=== PATIENT | female | born 1950 | race Caucasian/White ===

== ENCOUNTER → 2018-11-21 | Outpatient (CLI) | payer MEDICARE ==
--- NOTE | 2018-11-21 22:39 | MR ---
EXAMINATION TYPE: MR tspine/lspine wo con DATE OF EXAM: 11/21/2018 COMPARISON: NONE HISTORY: Pain in thoracic spine, DDD, spasm, and low back pain per order. Back pain for 5 weeks per p atient. TECHNIQUE: Multiplanar, multisequence imaging of the thoracic and lumbar spine are performed without IV contrast. FINDINGS: T-SPINE: TECHNIQUE: Multiplanar, multisequence imaging of thoracic spine is performed without contrast FINDINGS: Sagittal T2 counting sequence shows posterior disc herniations efface the anterior thecal s ac at C5-C6 and C6-C7 levels. Spinal cord shows normal course, caliber, and signal as it courses the thoracic spine. Vertebral body heights and alignment are satisfactory. To space heights are fairly well maintained. There are posterior disc herniations efface the anterior thecal sac at T1-T2, T2-C3, T7-T8, T8-T9, T9-T10, and T10-T11 levels on sagittal images. Bone marrow signal intensity shows diff use hemangioma transformation of T9 vertebra and overall heterogeneity. Multilevel mild anterior and lateral spurring is present. Review of the axial images shows no additional significant disc herniation or significant neural fora dawood narrowing at any thoracic level. No suspicious incidental finding is seen in the visualized th orax or upper abdomen. IMPRESSION: Multilevel small posterior disc herniation that are most prominent in the lower thoracic spine is detailed above. L-SPINE: Sagittal images of the lumbar spine show vertebral body heights and alignment to appear satisfactory. Multilevel disc desiccation with mild disc space narrowing is present. Multilevel small posterior di sc herniations are seen on sagittal images. There is mild/moderate multilevel anterior spurring. The conus medullaris is normal in position and signal ending mid L1 level. 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 The bone marrow signal intensity is overall heterogeneous. Axial images at T12-L1 level are within normal limits. Axial images at L1-L2 levels show with mild broad disc bulge mildly effaces the anterior thecal sac a nd axial image 25. Axial images at the L2-L3 level show mild to moderate broad disc bulge all effacing the anterior thec al sac causing [id number] left greater than right bilateral anterior inferior neural foraminal narrowing. Axial images at the L3-L4 level mild/moderate broad-based disc bulge mildly effacing anterior thecal sac with mild facet degenerative changes bilaterally. There is mild bilateral anterior inferior neura l foraminal narrowing noted. Axial images at the L4-L5 level show mild/moderate facet degenerative changes bilaterally mildly effa cing posterior lateral thecal sac with mild broad disc bulge mildly effacing the anterior thecal sac. Bilateral neural foramina are patent. Axial images at the L5-S1 level show mild/moderate facet degenerative changes bilaterally. There is a rtifact from anterior fusion hardware. There is broad disc bulge with left precentral disc protrusion component mildly efface the anterior thecal sac. Bilateral neural foramina are patent. IMPRESSION: Multilevel degenerative changes in the lumbar spine as detailed above.
== END | disposition home or self-care (01) ==
LOC: RADMRIMAIN 17:43
PROVIDERS: ATTEND Family Medicine
DX: M48.061 Spinal stenosis, lumbar region without neurogenic claudication (principal); M51.26 Other intervertebral disc displacement, lumbar region; M51.24 Other intervertebral disc displacement, thoracic region; M47.816 Spondylosis without myelopathy or radiculopathy, lumbar region
CPT/HCPCS: 72146; 72148

== ENCOUNTER → 2018-12-18 | Outpatient (CLI) | payer MEDICARE ==
--- NOTE | 2018-12-18 11:32 | CT ---
EXAMINATION TYPE: CT abdomen w con DATE OF EXAM: 12/18/2018 COMPARISON: None HISTORY: Generalized abdominal pain CT DLP: 1068 mGycm Automated exposure control for dose reduction was used. TECHNIQUE: Helical acquisition of images was performed from the lung bases through the top of iliac crest to include entire abdomen. CONTRAST: Performed without Oral Contrast and with IV Contrast, patient injected with 100 ml mL of Isovue 300. FINDINGS: LUNG BASES: No significant abnormality is appreciated. LIVER/GB: No significant abnormality is appreciated. PANCREAS: No significant abnormality is seen. SPLEEN: No significant abnormality is seen. ADRENALS: No significant abnormality is seen. KIDNEYS: No significant abnormality is seen. BOWEL: No significant abnormality is seen. Colonic interposition noted anterior to the liver. Retain ed fecal debris present throughout much of the visualized colon. No evident bowel obstruction. There is some questionable loops of bowel with thickened reddy in the jejunum, left upper quadrant LYMPH NODES: No significant abnormality is appreciated. There are surgical clips present in the pres acral region. OSSEOUS STRUCTURES: Degenerative disc change, facet arthropathy noted in the visualized lumbar spine FREE AIR: No Free Air visible ASCITES: None visible. RETROPERITONEAL ADENOPATHY: No Retroperitoneal Adenopathy visible. OTHER: Nodular soft tissue appearance is present posterior to the liver on axial image 22 and is an i ndeterminate finding measuring approximately 2.4 cm, findings may be related to be posterior hemidiap hragm, follow-up could be performed to assess for stability. IMPRESSION: CORRELATE FOR POSSIBLE ENTERITIS. Abnormal soft tissue density posterior to the right lobe of the baldo er at the level the hemidiaphragm is of questionable clinical significance. Consider follow-up to ass ess for stability. Postop changes.
== END | disposition home or self-care (01) ==
LOC: RADCTMAIN 07:41
PROVIDERS: ATTEND Family Medicine
DX: M79.89 Other specified soft tissue disorders (principal); Z98.890 Other specified postprocedural states
CPT/HCPCS: 82565; 84520; 74160; 36415; Q9967

== ENCOUNTER 2019-03-12 07:01 | Day surgery (SDC) | payer MEDICARE ==
[~2019-03-12 07:01] MED LIST: LACTATED RINGERS 1,000 ML IV SCH; LIDOCAINE 1% 20 ML VIAL (10MG/ML) FOR IV START INTRADERMA PRN
[2019-03-12 07:31] LABS: Glucose,Whole Blood 130 mg/dL (75-99)
[2019-03-12 07:36] VITALS: TEMP 98.3
[2019-03-12] MEDS ORDERED: PROPOFOL 10 MG/ML 20 ML VIAL IV ONE (07:44)
--- NOTE | 2019-03-12 08:05 | P.GSHP ---
History of Present Illness H&P Date: 03/12/19 Chief Complaint: Screening colonoscopy This is a 68-year-old female who presents today for screening colonoscopy. Patient had partial colectomy in the past for colon polyp. She denies a significant GI complaints. Past Medical History Past Medical History: Chest Pain / Angina, Diabetes Mellitus, Fibromyalgia, Hyperlipidemia, Hypertension, Thyroid Disorder Additional Past Medical History / Comment(s): INFLAMMED BLADDER FREQ UTI. MIGRAINES, BENIGN COLON POLYP, DDD WITH BACK PAIN, KIDNEY STONES, restless leg History of Any Multi-Drug Resistant Organisms: None Reported Past Surgical History: Adenoidectomy, Appendectomy, Bowel Resection, Heart Catheterization With Stent, Hernia Repair, Hysterectomy, Orthopedic Surgery, Tonsillectomy Additional Past Surgical History / Comment(s): INCISIONAL HERNIA. LEFT WRIST FX WITH PLATE, COLONOSCOPY, incisional hernia repair Past Anesthesia/Blood Transfusion Reactions: No Reported Reaction Date of Last Stent Placement:: 2007 Past Psychological History: No Psychological Hx Reported Smoking Status: Former smoker Past Alcohol Use History: Occasional Additional Past Alcohol Use History / Comment(s): SMOKED FOR APPROX 20 YEARS - 2 PACKS PER WEEK. QUIT SMOKING 20 YEARS AGO (1995) Past Drug Use History: None Reported - Past Family History Father Family Medical History: Cancer Additional Family Medical History / Comment(s): LUNG CA Mother Family Medical History: No Reported History Medications and Allergies Home Medications Medication Instructions Recorded Confirmed Type Atorvastatin [Lipitor] 40 mg PO HS 01/14/14 03/12/19 History Topiramate [Topamax] 100 mg PO BID 01/14/14 03/12/19 History metFORMIN HCL [Glucophage] 850 mg PO BID 01/14/14 03/12/19 History Losartan [Cozaar] 50 mg PO QAM 01/16/14 03/12/19 History Amitriptyline HCl [Elavil] 50 mg PO HS 01/27/15 03/12/19 History Magnesium Oxide [Mag-Ox] 250 mg PO DAILY 01/27/15 03/12/19 History Aspirin 81 mg PO DAILY 02/19/15 03/12/19 History Levothyroxine Sodium [Synthroid] 175 mcg PO QAM 02/19/15 03/12/19 History Nitroglycerin Sl Tabs [Nitrostat] 0.4 mg SUBLINGUAL Q5M PRN 02/19/15 03/12/19 History HYDROcodone/APAP 10-325MG [[place] 1 tab PO QID 11/18/15 03/12/19 History 10-325] Cyclobenzaprine [Flexeril] 5 mg PO QAM 03/08/19 03/12/19 History Cyclobenzaprine [Flexeril] 10 mg PO HS 03/08/19 03/12/19 History Ergocalciferol (Vitamin D2) 50,000 unit PO DUMONT 03/08/19 03/12/19 History [Vitamin D2] Estradiol [Estrace] 1 mg PO HS 03/08/19 03/12/19 History Melatonin 10 mg PO HS 03/08/19 03/12/19 History Metoprolol Succinate [Toprol XL] 25 mg PO HS 03/08/19 03/12/19 History Potassium 99 mg PO DAILY 03/08/19 03/12/19 History Trimethoprim 100 mg PO QAM 03/08/19 03/12/19 History valACYclovir HCL [Valtrex] 2,000 mg PO BID PRN 03/08/19 03/12/19 History Allergies Allergy/AdvReac Type Severity Reaction Status Date / Time Sulfa (Sulfonamide Allergy Rash/Hives Verified 03/08/19 10:08 Antibiotics) coconut Allergy Swelling Uncoded 03/08/19 10:08 Surgical - Exam Vital Signs Temp Pulse Resp BP Pulse Ox 98.3 F 88 18 156/81 95 03/12/19 07:20 03/12/19 07:20 03/12/19 07:20 03/12/19 07:20 03/12/19 07:20 - General well developed, well nourished, no distress - Eyes PERRL - ENT normal pinna - Neck no masses - Respiratory normal expansion - Cardiovascular Rhythm: regular - Abdomen Abdomen: soft, non tender Results - Labs Abnormal Lab Results - Last 24 Hours (Table) 03/12/19 Range/Units 07:26 POC Glucose (mg/dL) 130 H (75-99) mg/dL Assessment and Plan Assessment: We'll perform screening colonoscopy.
[2019-03-12 08:26] VITALS: PULSE 76; RESP 16
[2019-03-12 08:43] VITALS: BP 142/75
--- NOTE | 2019-03-12 10:34 | P.OP ---
Date of Procedure: 03/12/19 Preoperative Diagnosis: Screening colonoscopy Postoperative Diagnosis: Normal colon status post right colectomy Procedure(s) Performed: Colonoscopy Anesthesia: MAC Surgeon: Morales Gracia Pathology: none sent Condition: stable Disposition: PACU Description of Procedure: Patient's placed on the endoscopy table in the lateral position. She received IV sedation. Digital rectal exam performed which revealed no abnormalities. The flexible colonoscope was then placed patient anus passed throughout the e ntire colon. Patient a previous right colectomy. The ileocolonic vessel scissors. Scope was withdrawn. The remainder of the transverse, descending and sigmoid colon appeared normal. Scope liver back the rectum and this appeared normal. Scope withdrawn for patient.
== END 2019-03-12 08:56 | disposition home or self-care (01) ==
LOC: ORWHC2ENDO 07:01
PROVIDERS: ATTEND Surgery
DX: Z12.11 Encounter for screening for malignant neoplasm of colon (principal); Z90.49 Acquired absence of other specified parts of digestive tract; Z86.010 Personal history of colon polyps; E11.9 Type 2 diabetes mellitus without complications; M79.7 Fibromyalgia; E78.5 Hyperlipidemia, unspecified; I10 Essential (primary) hypertension; E07.9 Disorder of thyroid, unspecified; G43.909 Migraine, unspecified, not intractable, without status migrainosus; N30.90 Cystitis, unspecified without hematuria; Z87.440 Personal history of urinary (tract) infections; Z87.442 Personal history of urinary calculi; Z95.5 Presence of coronary angioplasty implant and graft; Z90.710 Acquired absence of both cervix and uterus; G25.81 Restless legs syndrome; Z87.891 Personal history of nicotine dependence; Z80.1 Family history of malignant neoplasm of trachea, bronchus and lung; Z79.84 Long term (current) use of oral hypoglycemic drugs; Z79.890 Hormone replacement therapy; Z79.891 Long term (current) use of opiate analgesic; Z79.899 Other long term (current) drug therapy; Z88.2 Allergy status to sulfonamides; Z91.018 Allergy to other foods
CPT/HCPCS: J2704; G0105

== ENCOUNTER → 2022-10-28 | Outpatient (CLI) | payer MEDICARE ==
[2022-10-28 11:58] LABS: African American GFR (CKD) >90 (>60 ml/min/1.73 sqM); Blood Urea Nitrogen 13 mg/dL (7-17); Non-African American GFR(CKD) 82 (>60 ml/min/1.73 sqM)
--- NOTE | 2022-10-28 15:10 | CT ---
EXAMINATION TYPE: CT abdomen pelvis w con DATE OF EXAM: 10/28/2022 COMPARISON: 12/18/2018 HISTORY: 72-year-old female R19.4, Diarrhea, abnormal bowel habits TECHNIQUE: Contiguous axial scanning of the abdomen and pelvis following administration of 100 ml Iso robin 300 IV contrast. Delayed images through the kidneys and coronal/sagittal reconstructions perform ed. CT DLP: 1683.5 mGycm Automated exposure control for dose reduction was used. FINDINGS: Heart is normal size without pericardial effusion. There is a small 9 mm nodule in the central outer aspect of the left breast, axial image 4 that can b e reassessed with diagnostic mammogram. Some minimal emphysematous change and some strandy atelectasis in the lower lungs. No pleural effusio n. Liver enlarged at 19.5 cm without focal lesion. Junctional fold within the gallbladder. No abnormal g allbladder distention. Portal venous system is patent. Bile duct measures 8 mm, mildly dilated, but m ay be acceptable given patient's age. Adrenal glands, spleen, and pancreas show no gross abnormality. A couple tiny benign renal cysts measuring up to 1.1 cm. Mild fullness of the bilateral renal collect ing systems with normal caliber ureters, possible extrarenal pelves. Mild atherosclerotic calcifications infrarenal abdominal aorta without aneurysm. No dilated small bowel, free fluid, or free air. No mesenteric or retroperitoneal lymphadenopathy. High riding cecum. Some surgical material, axial image 49 suggests prior appendectomy. Oral contrast has progressed into the descending colon. No significant stool burden. There may be mild wall thicken ing of the colon at the level of the splenic flexure. No pericolonic inflammatory change. Minimal mid sigmoid diverticulosis. Bladder urine distended. No abnormal fluid collection in the pelvis or pelvic lymphadenopathy. Mild p elvic floor relaxation. Uterus surgically absent. Neither ovary clearly seen. Some surgical clips are present just below the level of the aortic bifurcation in the presacral region. Incidental lipoma measuring 4.8 x 4.6 x 2.2 cm interposed between the lateral aspect of the right glu teus medius medius and juan jose muscles. No internal complexity is seen. Bones: Mild degenerative change of the hips. Moderate degenerative disc disease throughout the lumbar spine with hypertrophic facet arthropathy. Degenerative trace grade 1 retrolisthesis L1-L2, L2-L3, L 3-L4. IMPRESSION: 1. POSSIBLE NONSPECIFIC MILD INFECTIOUS/INFLAMMATORY COLITIS AT THE SPLENIC FLEXURE OF THE COLON GIVE N THE APPEARANCE OF MILD WALL THICKENING. NO SIGNIFICANT SURROUNDING INFLAMMATION IS SEEN. 2. SIGMOID DIVERTICULOSIS WITHOUT EVIDENCE FOR ACUTE DIVERTICULITIS. 3. HEPATOMEGALY AT 19.5 CM. THERE MAY BE MILD UNDERLYING FATTY INFILTRATION OF THE LIVER. 4. A 9 MM NODULE IN THE CENTRAL OUTER ASPECT OF THE LEFT BREAST CAN BE FURTHER EVALUATED WITH DIAGNOS TIC MAMMOGRAM IF ANNUAL SCREENING HAS NOT RECENTLY BEEN PERFORMED.
== END | disposition home or self-care (01) ==
LOC: RADCTMAIN 10:51
PROVIDERS: ATTEND Family Medicine
DX: K57.30 Diverticulosis of large intestine without perforation or abscess without bleeding (principal); R16.0 Hepatomegaly, not elsewhere classified; R19.4 Change in bowel habit; R91.1 Solitary pulmonary nodule; Z90.49 Acquired absence of other specified parts of digestive tract
CPT/HCPCS: 82565; 84520; 74177; 36415; Q9967

== ENCOUNTER → 2022-11-17 | Outpatient (CLI) | payer MEDICARE ==
--- NOTE | 2022-11-28 11:21 | MM ---
Reason for Exam: Clinical finding. Last mammogram was performed 1 year(s) and 3 month(s) ago. Patient History: Menarche at age 15. Patient has no children. Left ovary removed at age 42. Right ovary removed at age 42. Hysterectomy at age 42. Postmenopausal. Estrogen for 13 years, 7 months, from age 42 until age 57. Core Biopsy on the Right side. Excisional Biopsy on the Right side. Excisional Biopsy on the Right side. 10/04/2002, Benign Stereotactic Core Biopsy on the right side. Risk Values: Liliana 5 year model risk: 2.6%. NCI Lifetime model risk: 7.3%. Prior Study Comparison: 04/01/2003 Right Diagnostic Mammogram, [facility]. 02/05/2004 Bilateral Diagnostic Mammogram, [facility]. 02/16/2005 Bilateral Screening Mammogram, [facility]. 03/21/2006 Bilateral Screening Mammogram, [facility]. 03/22/2007 Bilateral Screening Mammogram, [facility]. 05/07/2008 Bilateral Screening Mammogram, [facility]. 05/08/2009 Bilateral Screening Mammogram, [facility]. 02/10/2011 Bilateral Screening Mammogram, [facility]. 02/13/2012 Bilateral Screening Mammogram, [facility]. 02/29/2016 Bilateral Screening Mammogram, [facility]. 08/19/2019 Bilateral Screening Mammogram, [facility]. 08/31/2021 Bilateral Screening Mammogram, [facility]. Tissue Density: There are scattered fibroglandular densities. Findings: Analyzed By CAD. Nodular density left breast 3.6 cm from the nipple is unchanged from the prior study. Ultrasound is recommended. No suspicious calcifications noted. Microclip marker right breast. Overall Assessment: Incomplete: need additional imaging evaluation, BI-RAD 0 Management: Diagnostic Breast Ultrasound of the left breast. . Results were given to the patient verbally at the time of exam. Patient should continue monthly self-breast exams. A clinical breast exam by your physician is recommended on an annual basis. This exam should not preclude additional follow-up of suspicious palpable abnormalities. Note on Liliana scores and lifetime risk: 1. A Liliana score greater than 3% is considered moderate risk. If this is the case, consider specialist referral to assess eligibility for a risk reducing agent. 2. If overall lifetime risk for the development of breast cancer is 20% or higher, the patient may qualify for future screening with alternating mammogram and breast MRI. Electronically signed and approved by: Alvarez Sutton M.D. Radiologis
--- NOTE | 2022-11-28 11:28 | USB ---
Reason for Exam: Additional evaluation requested from abnormal screening. Patient History: Menarche at age 15. Patient has no children. Left ovary removed at age 42. Right ovary removed at age 42. Hysterectomy at age 42. Postmenopausal. Estrogen for 13 years, 7 months, from age 42 until age 57. Core Biopsy on the Right side. Excisional Biopsy on the Right side. Excisional Biopsy on the Right side. 10/04/2002, Benign Stereotactic Core Biopsy on the right side. Risk Values: Liliana 5 year model risk: 2.6%. NCI Lifetime model risk: 7.3%. Technique: Method: Targeted. Prior Study Comparison: 02/10/2011 Bilateral Screening Mammogram, [facility]. 02/13/2012 Bilateral Screening Mammogram, [facility]. 02/29/2016 Bilateral Screening Mammogram, [facility]. Findings: No solid or cystic masses are identified.. Overall Assessment: Probably benign, BI-RAD 3 Management: Diagnostic Mammogram of the left breast in 6 months. A clinical breast exam by your physician is recommended on an annual basis and results should be correlated with mammographic findings. This exam should not preclude additional follow-up of suspicious palpable abnormalities. Results were given to the patient verbally at the time of exam. Electronically signed and approved by: Alvarez Sutton M.D. Radiologis
== END | disposition home or self-care (01) ==
LOC: RADMAMWWP 09:35
PROVIDERS: ATTEND Family Medicine
DX: N63.10 Unspecified lump in the right breast, unspecified quadrant (principal); N63.20 Unspecified lump in the left breast, unspecified quadrant; Z78.0 Asymptomatic menopausal state
CPT/HCPCS: 77066; 76642; G0279; 77062

== ENCOUNTER → 2024-03-07 | Outpatient (CLI) | payer MEDICARE ==
--- NOTE | 2024-03-18 11:35 | MM ---
Reason for Exam: Screening (asymptomatic). Last mammogram was performed 1 year(s) and 3 month(s) ago. Patient History: Menarche at age 15. Patient has no children. Left ovary removed at age 42. Right ovary removed at age 42. Hysterectomy at age 42. Postmenopausal. Estrogen for 13 years, 7 months, from age 42 until age 57. Core Biopsy on the Right side. Excisional Biopsy on the Right side. Excisional Biopsy on the Right side. 10/04/2002, Benign Stereotactic Core Biopsy on the right side. Risk Values: Liliana 5 year model risk: 2.7%. NCI Lifetime model risk: 6.9%. Prior Study Comparison: 08/19/2019 Bilateral Screening Mammogram, [facility]. 08/31/2021 Bilateral Screening Mammogram, [facility]. 11/17/2022 Bilateral MG 3D diag mammo w/cad [facility], [facility]. Tissue Density: There are scattered areas of fibroglandular density. Findings: Analyzed By CAD. Right breast biopsy clip. Right breast: There is no suspicious group of microcalcifications or new suspicious mass. Left breast: There is no suspicious group of microcalcifications or new suspicious mass. Overall Assessment: Benign, BI-RAD 2 Management: Screening Mammogram of both breasts in [address] [facility] will attempt to contact patient to return for supplemental views and ultrasound if indicated. Patient should continue monthly self-breast exams. A clinical breast exam by your physician is recommended on an annual basis. This exam should not preclude additional follow-up of suspicious palpable abnormalities. Note on Liliana scores and lifetime risk: 1. A Liliana score greater than 3% is considered moderate risk. If this is the case, consider specialist referral to assess eligibility for a risk reducing agent. 2. If overall lifetime risk for the development of breast cancer is 20% or higher, the patient may qualify for future screening with alternating mammogram and breast MRI. [facility], , 03/18/2024 11:32 AM. Electronically signed and approved by: Colton Wall DO
== END | disposition home or self-care (01) ==
LOC: RADMAMWWP 16:16
PROVIDERS: ATTEND Family Medicine
CPT/HCPCS: 77063; 77067

== ENCOUNTER 2024-03-18 13:14 | Day surgery (SDC) | payer MEDICARE ==
[~2024-03-18 13:14] MED LIST changes: -LACTATED RINGERS 1,000 ML IV SCH; +LIDOCAINE 1% (10MG/ML) FOR IV START INTRADERMA PRN; -LIDOCAINE 1% 20 ML VIAL (10MG/ML) FOR IV START INTRADERMA PRN
[2024-03-18 13:35] VITALS: TEMP 98
[2024-03-18] MEDS: LACTATED RINGERS 1,000 ML IV SCH (13:57)
[2024-03-18] MEDS: IV FLUID CONTINUATION 1,000 ML IV ONE (13:58)
[2024-03-18 14:01] LABS: Glucose,Whole Blood 149 mg/dL (70-110)
[2024-03-18] MEDS ORDERED: PROPOFOL 10 MG/ML 20 ML VIAL IV ONE (16:05)
--- NOTE | 2024-03-18 16:25 | P.GSHP ---
History of Present Illness H&P Date: 03/18/24 Chief Complaint: Screening colonoscopy This is a 73-year-old female who presents today for screening colonoscopy. Patient denies any significant GI complaints. Past Medical History Past Medical History: Chest Pain / Angina, Fibromyalgia, Hyperlipidemia, Hypertension, Osteoarthritis (OA), Thyroid Disorder Additional Past Medical History / Comment(s): INFLAMMED BLADDER FREQ UTI recently tx. urinary leakage. MIGRAINES, BENIGN COLON POLYP, DDD WITH BACK PAIN, hx KIDNEY STONES, restless leg, Pre diabetic in the past , no meds now ( stopped 04/2023) does not check sugars. loose stools since 01/2024 History of Any Multi-Drug Resistant Organisms: None Reported Past Surgical History: Adenoidectomy, Appendectomy, Bowel Resection, Heart Catheterization With Stent, Hernia Repair, Hysterectomy, Orthopedic Surgery, Tonsillectomy Additional Past Surgical History / Comment(s): INCISIONAL HERNIA. LEFT WRIST FX WITH PLATE, COLONOSCOPY, incisional hernia repair Past Anesthesia/Blood Transfusion Reactions: No Reported Reaction Date of Last Stent Placement:: 2007 Smoking Status: Former smoker - Past Family History Father Family Medical History: Cancer Additional Family Medical History / Comment(s): LUNG CA Mother Family Medical History: No Reported History Medications and Allergies Home Medications Medication Instructions Recorded Confirmed Type Topiramate [Topamax] 100 mg PO TID 01/14/14 03/18/24 History Losartan [Cozaar] 50 mg PO QAM 01/16/14 03/18/24 History Amitriptyline HCl [Elavil] 50 mg PO HS 01/27/15 03/18/24 History Magnesium Oxide [Mag-Ox] 250 mg PO DAILY 01/27/15 03/18/24 History Aspirin 81 mg PO DAILY 02/19/15 03/18/24 History Levothyroxine Sodium [Synthroid] 137 mcg PO QAM 02/19/15 03/18/24 History HYDROcodone/APAP 10-325MG [[place] 1 tab PO QID 11/18/15 03/18/24 History 10-325] Cyclobenzaprine [Flexeril] 10 mg PO HS 03/08/19 03/18/24 History Ergocalciferol (Vitamin D2) 50,000 unit PO DUMONT 03/08/19 03/18/24 History [Vitamin D2] Melatonin [Melatonin ER] 10 mg PO HS 03/08/19 03/18/24 History Metoprolol Succinate [Toprol XL] 50 mg PO HS 03/08/19 03/18/24 History Potassium 99 mg PO DAILY 03/08/19 03/18/24 History valACYclovir HCL [Valtrex] 2,000 mg PO BID PRN 03/08/19 03/18/24 History Unk Fish Oil 1 tab PO DAILY 03/14/24 03/18/24 History Mv-Min/FA/Vit K/Lutein/Zeaxant 1 tab PO HS 03/14/24 03/18/24 History [Preservision Areds 2 Plus Mv] Oxybutynin Chloride [oxyBUTYnin 15 mg PO AC-SUPPER 03/14/24 03/18/24 History chloride ER] Rosuvastatin [Crestor] 10 mg PO HS 03/14/24 03/18/24 History Unk Calcium 1 tab PO DAILY 03/14/24 03/18/24 History Unk Multivitamin 1 tab PO DAILY 03/14/24 03/18/24 History Allergies Allergy/AdvReac Type Severity Reaction Status Date / Time Sulfa (Sulfonamide Allergy Rash/Hives Verified 03/18/24 13:36 Antibiotics) coconut Allergy Swelling Uncoded 03/18/24 13:36 Surgical - Exam Vital Signs Temp Pulse Resp BP Pulse Ox 98.0 F 70 18 150/68 96 03/18/24 13:34 03/18/24 13:34 03/18/24 13:34 03/18/24 13:34 03/18/24 13:34 - General well developed, well nourished, no distress - Eyes PERRL - ENT normal pinna - Neck no masses - Respiratory normal expansion - Cardiovascular Rhythm: regular - Abdomen Abdomen: soft, non tender Results - Labs Abnormal Lab Results - Last 24 Hours (Table) 03/18/24 Range/Units 13:51 POC Glucose (mg/dL) 149 H (70-110) mg/dL Assessment and Plan Plan: Will perform screening colonoscopy
--- NOTE | 2024-03-18 16:26 | P.OP ---
Date of Procedure: 03/18/24 Preoperative Diagnosis: Screening colonoscopy Postoperative Diagnosis: Diverticulosis Procedure(s) Performed: Colonoscopy Anesthesia: MAC Surgeon: Morales Gracia Pathology: none sent Condition: stable Disposition: PACU Description of Procedure: The patient was placed on the endoscopy table in the lateral position. She received IV sedation. Digital rectal exam was performed. This revealed no abnormalities. The flexible colonoscope was then placed patient anus and passed throughout the colon. The right colon had a poor prep. This could not be fully visualized. This point scope withdrawn. The visualized right colon appeared normal. The transverse colon appeared normal. The descending sigmoid colon there is mild diverticular changes. The scope was brought back to the rectum this appeared normal. Scope withdrawn for the patient.
[2024-03-18 16:37] VITALS: RESP 16
[2024-03-18 16:43] VITALS: BP 119/76; PULSE 62
== END 2024-03-18 17:16 | disposition home or self-care (01) ==
LOC: ORWHC2ENDO 13:14
PROVIDERS: ATTEND Surgery
DX: Z12.11 Encounter for screening for malignant neoplasm of colon